=== PATIENT | female | born 1960 | race Caucasian/White ===

== ENCOUNTER 2016-04-20 11:34 | Emergency (ER) | payer OTHER ==
--- NOTE | ~2016-04-20 | CT71 ---
[facility] A Service of [facility] / [facility] RADIOLOGY TEXT RESULTS PATIENT: ISABELL PRESSLEY LOCATION: [facility] : 62 UNIT #: [id number] AGE: [address]: Tino Guajardo MD SEX: F ORDER DR: [id number] [facility]. [place], [place] [address] [id number] E MR#: [id number] Acc #: [id number] NAME: ISABELL PRESSLEY : 1960 SEX: F STUDY DATE/TIME: 04/20/2016 10:39 UNIT: [facility] ROOM: STUDY DESCRIPTION: CT Head Wo Contrast Attending Physician: Tino Guajardo M.D. Ordering Physician: Tino Guajardo M.D. Primary Care Physician: Odilon Shi M.D. MEDICAL IMAGING REPORT This report is preliminary unless electronic signature is present EXAM CT scan of the head without contrast HISTORY Headache for [address] exam was performed with one or more of the following radiation dose reduction techniques: automatic control, adjustment of mA and/or kV according to patient size, and iterative reconstruction. FINDINGS Axial noncontrast images were obtained from the skull base to the vertex. Ventricular size and configuration are normal. There is no evidence of acute infarct or hemorrhage. There are no extra-axial fluid collections. No mass lesion or mass effect is seen. There are no skull fractures. IMPRESSION Normal noncontrast head CT. Dictated by... Kody Anderson M.D. THIS IS AN ELECTRONICALLY VERIFIED REPORT Kody Anderson M.D. at 04/21/2016 3:06 PM SEEMA/munir TD: 04/21/2016 05:29 JOB #: [id number] [facility] A Service [facility] RADIOLOGY TEXT RESULTS PATIENT: ISABELL PRESSLEY LOCATION: [facility] : 62 UNIT #: [id number] AGE: [address]: Tino Guajardo MD SEX: F ORDER DR: MEDICAL IMAGING REPORT COPY
[~2016-04-20 11:34] MED LIST: A/T/S 2% GEL30 GM TOP; ASPIRIN81 MG PO; ATENOLOL25 MG PO; BACTRIM DS TABL1 TAB PO; CHROMIUM PIC1000 MCG PO; KEFLEX PO; MEDROL4 MG/DOSE- PO; METHADOSE40 M1 PO
== END 2016-04-20 12:19 | disposition home or self-care (01) ==
LOC: CED 11:34
DX: R51 Headache (principal)
CPT/HCPCS: 70450; 96372; 99284; J1885

== ENCOUNTER 2016-09-21 11:10 | Emergency (ER) | payer OTHER ==
[~2016-09-21] VITALS: Ht 160 cm; Wt 68.0 kg
--- NOTE | ~2016-09-21 | CR72 ---
[facility] A Service [facility] RADIOLOGY TEXT RESULTS PATIENT: ISABELL PRESSLEY LOCATION: [facility] : 62 UNIT #: [id number] AGE: [address]: Lavelle Epps DO SEX: F ORDER DR: [id number] [facility]. [place], [place] [address] [id number] E MR#: [id number] Acc #: [id number] NAME: ISABELL PRESSLEY : 1960 SEX: F STUDY DATE/TIME: 09/21/2016 12:28 UNIT: [facility] ROOM: STUDY DESCRIPTION: CR Chest Single View Portable Attending Physician: Lavelle Epps D.O. Ordering Physician: Lavelle Epps D.O. Primary Care Physician: Odilon Shi M.D. MEDICAL IMAGING REPORT This report is preliminary unless electronic signature is present EXAM Portable chest x-ray HISTORY Chest pain radiating through the left arm for 3 days. No known injury. Patient short of air. Smoker for 30 years. TECHNIQUE Single frontal portable view of the chest timed 12:28 on 09/21/2016. COMPARISON STUDIES 03/20/2016. FINDINGS There is normal cardiac silhouette size. There is no acute-appearing parenchymal infiltrate, acute congestive failure, pneumothorax or pleural effusion. IMPRESSION No active disease. Dictated by... Kirsten Gutiérrez M.D. THIS IS AN ELECTRONICALLY VERIFIED REPORT Kirsten Gutiérrez M.D. at 09/22/2016 3:54 PM SAC/pcl TD: 09/22/2016 15:37 JOB #: [id number] MEDICAL IMAGING REPORT [facility] A Service [facility] RADIOLOGY TEXT RESULTS PATIENT: ISABELL PRESSLEY LOCATION: [facility] : 62 UNIT #: [id number] AGE: [address]: Lavelle Epps DO SEX: F ORDER DR: Page 1 of 1 COPY
--- NOTE | ~2016-09-21 | CO ---
Unit #: [id number] #: [id number] Patient: ISABELL PRESSLEY [id number] [address] [place], [place] [address] [id number] E MR#: [id number] NAME: ISABELL PRESSLEY ROOM: Age: 56 Sex: F Admission Date: 09/21/2016 : 1960 Attending Physician: Lavelle Epps D.O. Primary Care Physician: Odilon Shi M.D. Consultation Date: 09/21/2016 CONSULTATION REPORT REASON FOR CONSULTATION Chest pains. HISTORY OF PRESENT ILLNESS This is 56-year-old female seen in the past by our group who presented to the ER with reports of chest discomfort and palpitations. States about one week ago she woke up with mid chest tightness without any radiating pain or associated symptoms. At that time, she took one Rolaids and a Tylenol PM and was able to go back to sleep. Last night, she woke up with the mid chest tightness again accompanied with palpitations. She denies nausea, vomiting, diaphoresis, lightheadedness or radiating pain. States she has severe anxiety and felt very anxious at the time. She denies prior history of cardiac disease. She did have a Cardiolite exercise stress test in December 2012 that was negative for ischemia. She does have a history of hypertension, anxiety, palpitations, and a history of polysubstance abuse and she has been on methadone since 2012. She denies a history of hyperlipidemia or diabetes mellitus or a family history of coronary artery disease. She does smoke one pack per day for the last 18 years. PAST MEDICAL HISTORY 1. Hypertension. 2. Negative Cardiolite exercise stress test in December 2012. 3. Anxiety. 4. Palpitations. 5. Tobacco abuse. 6. Polysubstance abuse, on methadone since 2012. SOCIAL HISTORY She does not work. She lives with her who is disabled and she is his caregiver. She smokes one pack per day for the past 18 years. Denies alcohol use. She has a past history of opiate drug use but has been on methadone since 2013. FAMILY HISTORY She denies a family history of premature coronary artery disease. PAST SURGICAL HISTORY None. ALLERGIES No known drug allergies. HOME MEDICATIONS Unit #: [id number] #: [id number] Patient: ISABELL PRESSLEY 1. Methadone, dose unknown. 2. Lisinopril 20 mg p.o. once a day. 3. Neurontin 300 mg p.o. three times a day. 4. Multivitamin, one tab once a day. REVIEW OF SYSTEMS A ten point review of systems was conducted and is otherwise negative except for what was stated in the HPI. PHYSICAL EXAMINATION VITAL SIGNS: Temp 98.8, heart rate 67, respiratory rate 22, blood pressure 145/102. GENERAL: This is an alert and oriented 56-year-old female resting in bed in no acute distress. HEENT: Head is atraumatic and normocephalic. Pupils are equal and reactive to light. Mucous membranes are moist and intact. NECK: Supple. Trachea is midline. No JVD. LUNGS: Clear. Nonlabored respirations. CARDIOVASCULAR: S1, S2. Regular rate and rhythm. No significant murmurs, rubs or gallops. ABDOMEN: Soft, nontender, nondistended. Bowel sounds positive. EXTREMITIES: Pulses are palpable. No pedal edema. No cyanosis. NEUROLOGIC: Alert and oriented x3. Moves all extremities equally and follows commands without difficulty. DIAGNOSTIC STUDIES LABORATORY: Sodium 140, potassium 4.1, chloride 106, BUN 17, creatinine 0.8, glucose 115, hemoglobin 12.9, hematocrit 39.1, white blood cell count 6.9, platelets 289, AST 19, ALT 15, alkaline phos. 54, point of care troponin less than 0.05. CARDIOVASCULAR: EKG shows sinus rhythm with a ventricular rate of 74 and nonspecific T wave abnormality. ASSESSMENT 1. Chest pain, question whether it is ischemic heart disease. 2. Hypertension. 3. Anxiety. 4. History of polysubstance abuse, on methadone since 2012. 5. Palpitations. 6. Tobacco abuse. PLAN 1. Add beta pilo to control blood pressure and palpitations. 2. Check fasting lipid profile and TSH levels. 3. 2D echo and Doppler. 4. Exercise Cardiolite stress test in a.m. 5. Continue home medications. I spoke with patient regarding admitting for observation and an exercise Cardiolite stress test rule out ischemic heart disease in the a.m. She takes care of her and is his primary caregiver and would like to go home. Denies current chest pain or discomfort. EKG and initial troponin was negative for ischemia. Ischemic workup can be done as outpatient. Okay to discharge home from a cardiovascular standpoint. Follow up in office FridaySeptember 27 at [address] Hurtado. Echocardiogram to be done in the office on Friday. Prescription provided for metoprolol 25 mg p.o. twice a day. Unit #: [id number] #: [id number] Patient: ISABELL PRESSLEY Dictated by... Marie Quiros APRN for Dontrell Curry TD: 09/21/2016 14:46 JOB #: [id number] CONSULTATION REPORT Page 1 of 1 X X CONSULTATION REPORT
--- NOTE | ~2016-09-21 | EKG ---
PATIENT: ISABELL PRESSLEY UNIT #: [id number] Ventricular Rate: 74 BPM Atrial Rate: 74 BPM P-R Interval: 146 ms QRS Duration: 82 ms Q-T Interval: 390 ms QTC Calculation(Bezet): 432 ms P [place]: 45 degrees Calculated R [place]: 36 degrees Calculated T [place]: 50 degrees Diagnosis Line: Normal sinus rhythm Diagnosis Line: Normal ECG Diagnosis Line: When compared with ECG of 26-DEC-2012 07:18, Diagnosis Line: No significant change was found Diagnosis Line: Confirmed by RUBEN SOLIS MD ([id number]) on 09/22/2016 Diagnosis Line: 3:04:36 PM INTERPRETING MD: WILL ARREOLA
[2016-09-21 11:57] LABS: BASOPHIL% 0.5 % (0-2.5); EOSINOPHIL# 0.1 X10e3 (0-0.7); HEMATOCRIT 39.1 % (35.0-45.0); HEMOGLOBIN 12.9 gm/dL (12.0-16.0); LYMPHOCYTE# 1.6 X10e3 (1.0-3.5); LYMPHOCYTE% 22.8 % (17.0-45.0); MEAN CELL VOLUME 93.8 FL (83-96); MEAN CORPUSCULAR HEMOGLOBIN 30.8 PG (28-34); MEAN CORPUSCULAR HGB CONC 32.9 g/dL (30-36); MEAN PLATELET VOLUME 7.6 FL (6.5-11.5); MONOCYTE# 0.2 X10e3 (0-1.0); MONOCYTE% 3.4 % (3.0-12.0); NEUTROPHIL# 4.9 X10e3 (1.5-7.1); NEUTROPHIL% 71.3 % (40-75); PLATELET COUNT 289 X10e3 (140-420); RED BLOOD COUNT 4.17 X10e (3.90-5.30); RED CELL DISTRIBUTION WIDTH 13.3 % (11.0-15.5); WHITE BLOOD COUNT 6.9 X10e3 (4.0-10.5)
[2016-09-21 11:59] LABS: DIFF IND NO
[2016-09-21 12:02] LABS: POC - CKMB <1.0 ng/mL (0.0-7.9); POC - TROPONIN <0.05 ng/mL (<=0.05)
[2016-09-21 12:21] LABS: ALBUMIN SERUM 3.7 g/dL (3.5-5.0); BILIRUBIN, DIRECT 0.1 mg/dL (0.0-0.2); BILIRUBIN,INDIRECT 0.2 mg/dL (0.0-0.9); BILIRUBIN,TOTAL 0.3 mg/dL (0.2-2.0); BUN/CREATININE RATIO 21.25; CALCIUM SERUM 8.6 mg/dL (8.4-10.2); CREATININE SERUM 0.8 mg/dL (0.6-1.4); GLOM FILT RATE Estimated 83.1 mL/min (>60); POTASSIUM 4.1 mmol/L (3.5-5.1); PROTEIN TOTAL SERUM 6.4 g/dL (6.0-8.3)
== END 2016-09-21 13:59 | disposition home or self-care (01) ==
LOC: CED 11:10
PROVIDERS: Emergency Medicine
DX: R07.89 Other chest pain (principal); I10 Essential (primary) hypertension; G89.29 Other chronic pain; F17.200 Nicotine dependence, unspecified, uncomplicated
CPT/HCPCS: 36415; 71010; 80048; 80076; 82553; 84484; 85025; 93005; 99285